=== PATIENT | male | born 1990 | race American Indian/Alaskan Native ===

== ENCOUNTER 2016-11-22 01:42 | Emergency (ER) | payer SELFPAY ==
[2016-11-22] MEDS ORDERED: DELTASONE ONE (01:49)
[2016-11-22] MEDS ORDERED: DUONEB *Not for PRN Use IH ONE ×2 (01:49→02:05)
[2016-11-22] MEDS ORDERED: PROVENTIL IH ONE ×2 (01:50→02:05)
[2016-11-22 02:02] VITALS: BP 127/74
[2016-11-22] MEDS ORDERED: DELTASONE PO ONE (02:05)
== END 2016-11-22 02:10 | disposition left against medical advice (07) ==
LOC: ED 01:42
DX: J45.909 Unspecified asthma, uncomplicated (principal); Z53.21 Procedure and treatment not carried out due to patient leaving prior to being seen by health care provider
CPT/HCPCS: J7512